=== PATIENT | female | born 1965 | race Caucasian/White ===

== ENCOUNTER 2018-03-01 16:52 | Emergency (ER) | payer BC ==
[2018-03-01] MEDS ORDERED: Sodium Chloride 0.9% 10 ML Syringe FLUSH PRN (17:00)
[2018-03-01] MEDS ORDERED: Sodium Chloride 0.9% 1,000 ML IV ONE (17:00)
[2018-03-01] MEDS ORDERED: Dexamethasone 4 MG/ML SDV IVPUSH ONE (17:00)
[2018-03-01] MEDS ORDERED: diphenhydrAMINE 50 MG/ML SDV IVPUSH ONE (17:01)
[2018-03-01] MEDS ORDERED: EPINEPHrine 1 MG/ML SDV IM ONE (17:01)
[2018-03-01] MEDS ORDERED: Albuterol 0.083% 2.5 MG/3 ML Neb Soln NEB ONE (17:03)
--- NOTE | 2018-03-01 17:24 | EDM.PDOC ---
ED HPI GENERAL MEDICAL PROBLEM - General Chief Complaint: Allergic Reaction Stated Complaint: ALLERGIC REACTION [id number] Time Seen by Provider: 03/01/18 17:05 Source of Information: Reports: Patient, RN, RN Notes Reviewed History Limitations: Reports: No Limitations - History of Present Illness INITIAL COMMENTS - FREE TEXT/NARRATIVE: Presents to ER by POV from work with c/o sudden onset of swelling to right side of the tongue. Denies swelling of throat or lips. Denies difficulty breathing, shortness of breath or wheezing. Denies rash or hives. Pt denies any new medications or supplements. Denies any food allergies. She has been on Lisinopril for approx. 2 years. Pt reports one prior episode of angioedema which was limited to the lips, but she doesn't recall what year it occurred. 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 Medication(s) (loratadine) - Related Data Allergies Allergy/AdvReac Type Severity Reaction Status Date / Time Penicillins Allergy Hives Verified 03/01/18 17:51 Home Meds: Home Meds Lisinopril [Prinivil] 10 mg PO DAILY 01/05/16 [History] Past Medical History Cardiovascular History: Reports: Hypertension Respiratory History: Reports: Other (See Below) Endocrine/Metabolic History: Reports: Other (See Below) (angioedema of lip) Social & Family History - Family History Family Medical History: Noncontributory - Caffeine Use Caffeine Use: Reports: Coffee - Living Situation & Occupation Living situation: Reports: with Family ED ROS ALLERGIC REACTION - Review of Systems Review Of Systems: ROS reveals no pertinent complaints other than HPI. ED EXAM GENERAL NO PERIP PULSE - Physical Exam Exam: See Below Exam Limited By: No Limitations General Appearance: Alert, WD/WN, No Apparent Distress Eye Exam: Bilateral Eye: Normal Inspection Ears: Normal External Exam, Hearing Grossly Normal Nose: Normal Inspection, Normal Mucosa, No Blood Throat/Mouth: Normal Lips, Normal Teeth, Normal Gums, Normal Oropharynx, No Airway Compromise, Other (significant edema of the right side of the tongue consistent with angioedema) Head: Atraumatic, Normocephalic Neck: Normal Inspection, Supple, Non-Tender, Full Range of Motion. No: Lymphadenopathy (L), Lymphadenopathy (R) Respiratory/Chest: No Respiratory Distress, Lungs Clear, Normal Breath Sounds, No Accessory Muscle Use, Chest Non-Tender Cardiovascular: Regular Rate, Rhythm, No Edema GI/Abdominal: Normal Bowel Sounds, Soft, Non-Tender, No Distention (Female) Exam: Deferred Rectal (Female) Exam: Deferred Back Exam: Normal Inspection Extremities: Normal Inspection, Normal Range of Motion, Non-Tender, Normal Capillary Refill, No Pedal Edema Neurological: Alert, Oriented, CN II-XII Intact, Normal Cognition, Normal Gait, No Motor/Sensory Deficits Psychiatric: Normal Affect, Normal Mood Skin Exam: Warm, Dry, Intact, Normal Color, No Rash Course - Vital Signs Last Recorded V/S: Last Vital Signs Temp 36.3 C 03/01/18 16:53 Pulse 89 03/01/18 18:01 Resp 18 03/01/18 18:01 BP 214/90 H 03/01/18 18:01 Pulse Ox 98 03/01/18 18:01 - Orders/Labs/Meds Orders: Active Orders 24 hr Category Date Time Status Peripheral IV Care [RC] . DIRECTED Care 03/01/18 17:00 Active RT Aerosol Therapy [RC] ASDIRECTED Care 03/01/18 17:03 Active Sodium Chloride 0.9% [Saline Flush] Med 03/01/18 17:00 Active 10 ml FLUSH ASDIRECTED PRN Peripheral IV Insertion Adult [OM.PC] Stat Oth 03/01/18 17:00 Ordered Medication Orders Sodium Chloride (Saline Flush) 10 ml FLUSH ASDIRECTED PRN PRN Reason: Keep Vein Open Last Admin: 03/01/18 17:18 Dose: 10 ml Labs: Laboratory Tests 03/01/18 03/01/18 03/01/18 Range/Units 17:19 17:19 17:19 WBC 6.5 (5.0-10.0) 10^3/uL RBC 4.76 (4.2-5.4) 10^6/uL Hgb 15.6 (12.0-16.0) g/dL Hct 44.5 (37.0-47.0) % MCV 93.5 (80-100) fL MCH 32.8 (27.0-34.0) pg MCHC 35.1 H (33.0-35.0) g/dL Plt Count 251 D (150-450) 10^3/uL Neut % (Auto) 63.5 (42.2-75.2) % Lymph % (Auto) 23.5 (20.5-50.1) % [place] % (Auto) 12.2 H (2-8) % Eos % (Auto) 0.5 L (1.0-3.0) % Baso % (Auto) 0.3 (0.0-1.0) % Sodium 138 (135-145) mmol/L Potassium 3.3 L (3.6-5.0) mmol/L Chloride 97 L (101-111) mmol/L Carbon Dioxide 29.0 (21.0-31.0) mmol/L Anion Gap 15.3 BUN 15 (7-18) mg/dL Creatinine 0.6 (0.6-1.3) mg/dL Est Cr Clr Drug Dosing TNP Estimated GFR (MDRD) > 60 BUN/Creatinine Ratio 25.00 Glucose 126 H (74-105) mg/dL Calcium 9.9 (8.4-10.2) mg/dl Total Bilirubin 0.9 (0.2-1.0) mg/dL AST 32 (10-42) IU/L ALT 22 (10-60) IU/L Alkaline Phosphatase 48 (42-121) IU/L C-Reactive Protein 0.5 (0.0-1.3) mg/dL Total Protein 8.5 H (6.7-8.2) g/dl Albumin 4.6 (3.2-5.5) g/dl Globulin 3.9 Albumin/Globulin Ratio 1.18 Meds: Medications Generic Name Dose Route Start Last Admin Trade Name Freq PRN Reason Stop Dose Admin Sodium Chloride 10 ml 03/01/18 17:00 03/01/18 17:18 Saline Flush FLUSH 10 ml ASDIRECTED PRN Administration Keep Vein Open Discontinued Medications Generic Name Dose Route Start Last Admin Trade Name Freq PRN Reason Stop Dose Admin Albuterol 2.5 mg 03/01/18 17:03 03/01/18 17:14 Proventil Neb Soln NEB 03/01/18 17:04 2.5 mg ONETIME ONE Administration Dexamethasone 20 mg 03/01/18 17:00 03/01/18 17:18 Dexamethasone IVPUSH 03/01/18 17:01 20 mg ONETIME ONE Administration Diphenhydramine HCl 50 mg 03/01/18 17:01 03/01/18 17:18 Benadryl IVPUSH 03/01/18 17:02 50 mg ONETIME ONE Administration Epinephrine HCl 0.5 mg 03/01/18 17:01 03/01/18 17:18 Adrenalin IM 03/01/18 17:02 0.5 mg ONETIME ONE Administration Sodium Chloride 1,000 mls @ 999 mls/hr 03/01/18 17:00 03/01/18 17:18 Normal Saline IV 03/01/18 18:00 999 mls/hr .BOLUS ONE Administration - Re-Assessments/Exams Free Text/Narrative Re-Assessment/Exam: 03/01/18 18:08 Pt began to have swelling to left side of tongue approx. 50mins. after being medicated for the angioedema of the Rt side of the tongue. Pt cannot be observed here due to risk of airway obstruction, therefore pt will be transferred to [facility], with Dr. Pimentel accepting the pt in transfer. 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 DIRECTED Sodium Chloride 0.9% [Saline Flush] 10 ml FLUSH ASDIRECTED PRN Peripheral IV Insertion Adult [OM.PC] Stat 03/01/18 17:03 RT Aerosol Therapy [RC] ASDIRECTED - Assessment/Plan Last 24 Hours: My Active Orders 03/01/18 17:00 Peripheral IV Care [RC] . DIRECTED Sodium Chloride 0.9% [Saline Flush] 10 ml FLUSH ASDIRECTED PRN Peripheral IV Insertion Adult [OM.PC] Stat 03/01/18 17:03 RT Aerosol Therapy [RC] ASDIRECTED
[2018-03-01 17:45] LABS: ANION GAP 15.3; CHLORIDE,CL 97 mmol/L (101-111); SODIUM,NA 138 mmol/L (135-145)
[2018-03-01 18:01] VITALS: BP 214/90
== END 2018-03-01 18:58 ==
LOC: DL.ED 16:52
DX: T78.3XXA Angioneurotic edema, initial encounter (principal); T46.4X5A Adverse effect of angiotensin-converting-enzyme inhibitors, initial encounter; I95.9 Hypotension, unspecified; I10 Essential (primary) hypertension; Z88.0 Allergy status to penicillin; Z79.899 Other long term (current) drug therapy
CPT/HCPCS: 36415; 80053; 85025; 86140; 94640; 96361; 96372; 96374; 96375; 99285; J0171; J1100; J1200; J7030; J7050; J7620

== ENCOUNTER 2018-12-19 07:00 | Emergency (ER) | payer BC ==
--- NOTE | 2018-12-19 07:12 | EDM.PDOC ---
ED HPI GENERAL MEDICAL PROBLEM - General Chief Complaint: Neuro Symptoms/Deficits Stated Complaint: STROKE? Time Seen by Provider: 12/19/18 07:06 Source of Information: Reports: Patient History Limitations: Reports: No Limitations - History of Present Illness INITIAL COMMENTS - FREE TEXT/NARRATIVE: This 53 yo female patient was brought to the ED by her due to right sided numbness. The patient reports she got dressed went to work. At 0640, the patient started to notice right sided numbness. By the time the patient got to the ED, the patient had right sided facial droop, right upper and lower extremity weakness. The patient denies any pain at the time of examination. Onset: Today Onset Date: 12/19/18 Onset Time: 06:40 Duration: Constant Location: Reports: Face, Upper Extremity, Right, Lower Extremity, Right Quality: Reports: Other (numbness) Severity: Severe Improves with: Reports: None Worsens with: Reports: None Context: Reports: Other Associated Symptoms: Reports: No Other Symptoms - Related Data Allergies Allergy/AdvReac Type Severity Reaction Status Date / Time lisinopril Allergy Swelling Verified 12/19/18 07:01 Penicillins Allergy Hives Verified 12/19/18 07:01 Past Medical History Cardiovascular History: Reports: Hypertension Respiratory History: Reports: Other (See Below) Gastrointestinal History: Reports: GERD Endocrine/Metabolic History: Reports: Other (See Below) (angioedema of lip) Social & Family History - Family History Family Medical History: Noncontributory - Caffeine Use Caffeine Use: Reports: Coffee - Living Situation & Occupation Living situation: Reports: with Family ED ROS GENERAL - Review of Systems Review Of Systems: ROS reveals no pertinent complaints other than HPI. ED EXAM, NEURO - Physical Exam Exam: See Below Exam Limited By: No Limitations General Appearance: Alert, WD/WN, Severe Distress Eye Exam: Bilateral Eye: EOMI, Normal Inspection, PERRL Ears: Normal External Exam, Normal Canal, Hearing Grossly Normal, Normal TMs Nose: Normal Inspection, Normal Mucosa, No Blood Throat/Mouth: Other (right sided droop) Head Exam: Atraumatic, Normocephalic Neck: Supple, Non-Tender Respiratory/Chest: No Respiratory Distress, Lungs Clear, Normal Breath Sounds, No Accessory Muscle Use, Chest Non-Tender Cardiovascular: Normal Peripheral Pulses, Regular Rate, Rhythm, No Edema, No Gallop, No JVD, No Murmur, No Rub GI/Abdominal: Normal Bowel Sounds, Soft, Non-Tender, No Organomegaly, No Distention, No Abnormal Bruit, No Mass (Female) Exam: Deferred Rectal (Female) Exam: Deferred Neurological: Alert, Other (right sided facial droop, right upper extremity weakness no resistance to gravity, right lower extremity weakness with no resistance to gravity.) Back Exam: Normal Inspection, Full Range of Motion, NT Extremities: Other (see above (neuro)) Psychiatric: Normal Affect, Normal Mood Skin Exam: Warm, Dry, Intact, Normal Color, No Rash Course - Orders/Labs/Meds Orders: Active Orders 24 hr Category Date Time Status EKG Documentation Completion [RC] URGENT Care 12/19/18 07:03 Ordered Head wo Cont [CT] Urgent Exams 12/19/18 07:03 Ordered CBC WITH AUTO DIFF [HEME] Urgent Lab 12/19/18 07:03 Ordered COMPREHENSIVE METABOLIC PN,CMP [CHEM] Urgent Lab 12/19/18 07:03 Ordered INR,PT,PROTHROMBIN TIME [COAG] Stat Lab 12/19/18 07:03 Ordered TROPONIN I [CHEM] Urgent Lab 12/19/18 07:03 Ordered UA RFX SHERRI AND CULT IF INDIC [URIN] Urgent Lab 12/19/18 07:03 Ordered - Re-Assessments/Exams Free Text/Narrative Re-Assessment/Exam: 12/19/18 08:12 A call was placed to [facility] (no helicopter and no fixed wing availability due to staffing and fog). A call was placed to [facility] (no fixed wing availability due to fog). A call was placed to [facility] in [place]. Reviewed the case with Dr. Wesley who advised to transfer the patient to [place] due to more therapeutic capabilities. A call was placed to [facility] in [place]. The case was reviewed with Dr. Taylor. Dr. Taylor accepted the patient for further evaluation and management. Dr. Taylor requested a Nicardipine drip with a blood pressure goal of 140/90. Departure - Departure Time of Disposition: 08:15 Disposition: DC/Tfer to [facility] 02 Condition: Critical Clinical Impression: Acute hemorrhagic infarction of brain - Discharge Information *PRESCRIPTION DRUG MONITORING PROGRAM REVIEWED*: Not Applicable *COPY OF PRESCRIPTION DRUG MONITORING REPORT IN PATIENT MALCOLM: Not Applicable Forms: Interfacility Transfer EMTALA Care Plan Goals: Discussed the patient's history, examination, lab, EKG and CT results with Dr. Taylor ([facility]). The patient was accepted for continued evaluation and management. The patient will be transported by [facility] due to no flight availability due to fog. The patient was started on a Nicardipine drip for blood pressure control with a goal to have the patient's blood pressure reduced to 140/90 during transport. - My Orders Last 24 Hours: My Active Orders 12/19/18 07:03 EKG Documentation Completion [RC] URGENT Head wo Cont [CT] Urgent CBC WITH AUTO DIFF [HEME] Urgent COMPREHENSIVE METABOLIC PN,CMP [CHEM] Urgent INR,PT,PROTHROMBIN TIME [COAG] Stat TROPONIN I [CHEM] Urgent UA RFX SHERRI AND CULT IF INDIC [URIN] Urgent - Assessment/Plan Last 24 Hours: My Active Orders 12/19/18 07:03 EKG Documentation Completion [RC] URGENT Head wo Cont [CT] Urgent CBC WITH AUTO DIFF [HEME] Urgent COMPREHENSIVE METABOLIC PN,CMP [CHEM] Urgent INR,PT,PROTHROMBIN TIME [COAG] Stat TROPONIN I [CHEM] Urgent UA RFX SHERRI AND CULT IF INDIC [URIN] Urgent
[2018-12-19] MEDS ORDERED: Labetalol 100 MG/20 ML MDV IVPUSH ONE (07:19)
--- NOTE | 2018-12-19 07:23 | CT ---
Clinical history: 53-year-old hypertensive patient with right-sided weakness. (Stroke protocol) TECHNIQUE: Volume acquisition of data emergency unenhanced CT scan of the head and brain obtained while the patient was lying supine on the Siemens multi slice scanner [place], [place]. All data archived in the PACS system for storage, reformatting axial/sagittal/coronal planes and study. Interpretation: Abnormal. *Acute intracranial hemorrhage (large thalamic bleed, on the left). ER provider alerted immediately at 0715 hours, 12/19/2018. Subtle extension of blood into the third ventricle and subtle mass effect on the ipsilateral ventricle (no other intraventricular or subarachnoid blood). No supratentorial or posterior fossa solid mass lesion. Subtle microvascular ischemic changes white matter both cerebral hemispheres. Uniformly thick bony calvarium without sign of underlying brain contusion. No abnormal extracerebral/intracranial epidural or subdural hematoma.
[2018-12-19 07:34] LABS: ANION GAP 16.4; CHLORIDE,CL 102 mmol/L (101-111); SODIUM,NA 138 mmol/L (135-145)
[2018-12-19 08:14] VITALS: BP 182/90
== END 2018-12-19 08:21 ==
LOC: DL.ED 07:00
DX: I62.9 Nontraumatic intracranial hemorrhage, unspecified (principal); I10 Essential (primary) hypertension; K21.9 Gastro-esophageal reflux disease without esophagitis; Z88.8 Allergy status to other drugs, medicaments and biological substances; Z88.0 Allergy status to penicillin
CPT/HCPCS: 36415; 51702; 70450; 80053; 81001; 82962; 84484; 85025; 85610; 93005; 96374; 96375; 99285; J3490

== ENCOUNTER 2022-08-04 09:56 | Emergency (ER) | payer MEDICARE, MEDICAID ==
[2022-08-04] MEDS ORDERED: Calcium Chloride 10% 1 GM/10 ML Syringe IV ONE (09:57)
[2022-08-04] MEDS ORDERED: Rocuronium 100 MG/10 ML MDV IV ONE (09:57)
[2022-08-04] MEDS ORDERED: EPINEPHrine 1:10,000 1 MG/10 ML Syringe IV ONE (09:57)
[2022-08-04] MEDS ORDERED: Sodium Chloride 0.9% 10 ML Syringe IV ONE (09:57)
[2022-08-04] MEDS ORDERED: Propofol 200 MG/20 ML SDV IV ONE (09:57)
[2022-08-04] MEDS ORDERED: Ketamine 500 mg/10 ML MDV IV ONE (09:57)
[2022-08-04 10:32] LABS: O2 DELIVERY DEVICE NASAL CANNULA
[2022-08-04 10:36] LABS: ALLEN TEST PERFORMED
[2022-08-04 10:37] LABS: BASE EXCESS ARTERIAL 14 mmol/L ((-2)-(+3)); O2 SATURATION ARTERIAL 90 % (95-100); PCO2 ARTERIAL 108 mmHg (35-45); PO2 ARTERIAL 79 mmHg (70-100)
[2022-08-04] MEDS ORDERED: cefTRIAXone 2 GM in Sodium Chloride 0.9% 100 ML IV ONE (11:02)
[2022-08-04] MEDS ORDERED: Azithromycin 500 MG in Sodium Chloride 0.9% 250 ML IV ONE (11:04)
[2022-08-04] MEDS ORDERED: Midazolam 50 MG in Sodium Chloride 0.9% 40 ML IV SCH (11:15)
[2022-08-04] MEDS ORDERED: Sodium Chloride 0.9% 1,000 ML IV ONE ×3 (11:15→19:19)
[2022-08-04] MEDS ORDERED: fentaNYL 500 MCG in Sodium Chloride 0.9% 50 ML IV SCH ×2 (11:15→14:51)
[2022-08-04 11:29] LABS: ANION GAP 13.4 mEq/L (7-13); CHLORIDE,CL 94 mmol/L (98-107); SODIUM,NA 140 mmol/L (136-145)
[2022-08-04 11:32] LABS: ESTIMATED GFR 26 mL/min (>=60)
[2022-08-04] MEDS ORDERED: Phenylephrine 0.5% Nasal Spray 15 ML Bot ONE (11:56)
[2022-08-04] MEDS ORDERED: Norepinephrine 4 MG/4 ML SDV ONE (12:00)
[2022-08-04] MEDS ORDERED: Albuterol 0.083% 2.5 MG/3 ML Neb Soln ONE (12:12)
[2022-08-04 13:06] LABS: AMPHETAMINES,URINE NEGATIVE (NEGATIVE); BARBITURATES,URINE NEGATIVE (NEGATIVE); BENZODIAZEPINE,URINE NEGATIVE (NEGATIVE); MDMA (ECSTASY), URINE NEGATIVE (NEGATIVE); METHADONE,URINE NEGATIVE (NEGATIVE); METHAMPHETAMINES,URINE NEGATIVE (NEGATIVE); OPIATES,URINE NEGATIVE (NEGATIVE); OXYCODONE,URINE NEGATIVE (NEGATIVE); PHENCYCLIDINE,URINE NEGATIVE (NEGATIVE); TCA,URINE NEGATIVE (NEGATIVE)
[2022-08-04] MEDS ORDERED: Furosemide 40 MG/4 ML VIAL IVPUSH ONE (13:49)
[2022-08-04 16:11] LABS: O2 DELIVERY DEVICE VENTILATOR
[2022-08-04 16:14] LABS: ALLEN TEST PERFORMED; BASE EXCESS ARTERIAL 12 mmol/L ((-2)-(+3)); BICARBONATE,ARTERIAL 39.2 mmol/L (22-26); O2 SATURATION ARTERIAL 97 % (95-100); PCO2 ARTERIAL 91 mmHg (35-45); PO2 ARTERIAL 108 mmHg (70-100)
[2022-08-04 17:45] VITALS: BP 106/79; PULSE 84
[2022-08-04] MEDS ORDERED: Midazolam 5 MG/ML 10 ML MDV ONE (19:29)
[2022-08-04] MEDS ORDERED: Norepinephrine 4 MG in Dextrose 5% in Water 246 ML IV SCH ×2 (19:45)
== END 2022-08-04 20:39 ==
LOC: DL.ED 09:56
DX: J18.9 Pneumonia, unspecified organism (principal); K72.90 Hepatic failure, unspecified without coma; D72.829 Elevated white blood cell count, unspecified; I10 Essential (primary) hypertension; Z88.8 Allergy status to other drugs, medicaments and biological substances; Z88.0 Allergy status to penicillin; Z20.822 Contact with and (suspected) exposure to COVID-19
CPT/HCPCS: 31500; 36415; 36600; 43752; 51702; 70450; 71045; 71250; 80053; 80143; 80179; 80305; 80307; 81001; 82140; 82550; 82803; 83605; 83735; 83880; 84145; 84443; 84484; 85025; 85610; 86140; 87040; 92950; 96365; 96366; 96368; 96375; 99285; J0171; J0456; J0696; J1940; J2250; J2704; J3010; J3490; J7030; J7050; J7060; U0002; A9270-GY